=== PATIENT | male | born 1960 | race Two or more races ===

== ENCOUNTER → 2019-10-20 | Outpatient (CLI) | payer OTHER ==
[~2019-10-20] MED LIST: COREG CR10 MG PO; COREG CR80 MG PO; LIPITOR20 MG PO; LOTREL 10-20 MG1 CAP PO; LOTREL 2.5/10 M1 CAP PO; PREVACID30 MG PO; ZOCOR20 MG; ZOCOR20 MG PO
== END | disposition home or self-care (01) ==
LOC: SONOGRAMA 09:34 → MAMO-SONO 10:15
DX: R74.0 Nonspecific elevation of levels of transaminase and lactic acid dehydrogenase [LDH] (principal); R74.8 Abnormal levels of other serum enzymes; E78.49 Other hyperlipidemia